=== PATIENT | male | born 1965 | race Two or more races ===

== ENCOUNTER 2017-03-23 12:14 | Day surgery (SDC) | payer OTHER ==
[~2017-03-23] VITALS: Ht 167.6 cm; Wt 80.8 kg
[2017-03-23 13:42] VITALS: Ht 167.6 cm; Wt 80.8 kg
[2017-03-23] MEDS ORDERED: IBUP400T22 PO (13:47)
[2017-03-23] MEDS ORDERED: METF500T4 PO (13:47)
[2017-03-23 15:40] VITALS: BP 121/70; PULSE 76; RESP 14
[2017-03-23] MEDS ORDERED: PROPOFOL 40 ML ONE (15:40)
[2017-03-23 16:34] VITALS: BP 127/88; RESP 20
--- NOTE | 2017-03-23 18:22 | GILP ---
DATE OF PROCEDURE: 03/23/2017 PROCEDURE: Colonoscopy with polyp ablation and localization tattoo. PREMEDICATION: Monitored anesthesia care by anesthesiologist. SURGEON: Rita Espitia MD. INSTRUMENT USED: Olympus colonoscope PREPARATION: Adequate. TECHNIQUE: After informed consent, with the patient/relatives understanding the procedure, its indic ations potential risks and complications, including but not limited to: allergic reaction, bleeding, perforation, infection, missed lesions and after all pertinent questions were answered to the patie nt's satisfaction, the patient/relatives signed the witnessed informed consent. Following this, premedication was administered slowly IV push by under careful cardiovascular and re spiratory monitoring with pulse oximetry, automatic blood pressure and monitor and storage bin tender. Once the sedativ e effect was achieved, the patient was placed in the left lateral decubitus position, digital rectal examination was performed. The colonoscope was then introduced and advanced under visual control th roughout all segments of the colon including: the rectum, sigmoid, descending colon, splenic flexure , transverse colon, hepatic flexure, ascending colon and finally reaching the cecum which was clearl y identified by transillumination, finger indentation and the ileocecal valve. Careful examination o f the mucosa of the lower gastrointestinal tract both on insertion as well as withdrawal of the inst rument disclosed the following findings: Rectal Examination: No evidence of perirectal disease, no masses. Colonic Mucosa: The colonic mucosa is remarkable for the presence of an 8 x 3 mm polyp in the ascend ing colon which was ablated with biopsy forceps. Location of the tattoo was applied to the area. Th e remainder of colonic mucosa unremarkable. The ileocecal valve was clearly identified and appears unremarkable. The instrument was withdrawn reexamining the mucosa in detail. No additional abnorma lities are noted with exception of moderate sized internal hemorrhoids. IMPRESSION: 1. An 8 x 3 mm polyp in the ascending colon, ablated. Localization tattoo applied. 2. Moderate size internal hemorrhoids. PLAN: Pathology will be reviewed as soon as available. Colonoscopy in 6 months is recommended to a ssess completeness of resection. Dictated By: RITA ESPITIA MS/MAYDA Conf#: [id number] DID#: [id number]
== END 2017-03-23 17:54 | disposition home or self-care (01) ==
LOC: GIL 12:14
PROVIDERS: ATTEND Internal Medicine Gastroenterology
DX: Z12.11 Encounter for screening for malignant neoplasm of colon (principal); D12.2 Benign neoplasm of ascending colon; K64.8 Other hemorrhoids; E11.9 Type 2 diabetes mellitus without complications; I10 Essential (primary) hypertension
CPT/HCPCS: 45380; 82962; 88305; Z7610